=== PATIENT | female | born 1990 | race Caucasian/White ===

== ENCOUNTER → 2016-05-01 | Outpatient (CLI) | payer OTHER ==
[~2016-05-01] MED LIST: AZIT500T2 PO; FERR325T PO; INFL1INJ56 IM; TRICTAB PO
== END ==
LOC: HPND 12:57
PROVIDERS: ATTEND Family Medicine
DX: O36.80X0 Pregnancy with inconclusive fetal viability, not applicable or unspecified (principal)
CPT/HCPCS: 76801

== ENCOUNTER → 2016-06-12 | Outpatient (CLI) | payer OTHER | LOC: HPND 12:58 | PROVIDERS: ATTEND Family Medicine | DX: Z36 Encounter for antenatal screening of mother (principal) | CPT/HCPCS: 76805 ==

== ENCOUNTER → 2016-07-11 | Outpatient (CLI) | payer OTHER ==
[~2016-07-11] MED LIST changes: -AZIT500T2 PO; -INFL1INJ56 IM
== END ==
LOC: HPND 10:39
PROVIDERS: ATTEND Obstetrics & Gynecology
DX: O35.8XX0 Maternal care for other (suspected) fetal abnormality and damage, not applicable or unspecified (principal); O35.0XX0 Maternal care for (suspected) central nervous system malformation in fetus, not applicable or unspecified
CPT/HCPCS: 76811

== ENCOUNTER 2016-11-02 09:43 | Emergency (ER) | payer OTHER ==
[~2016-11-02] VITALS: Ht 162.6 cm; Wt 67.1 kg
[~2016-11-02 09:43] MED LIST changes: +FERR324T4 PO; -FERR325T PO
--- NOTE | 2016-11-02 10:04 | PD ---
HPI Chief Complaint Contractions Date Seen: Nov 02, 2016 Time Seen: 10:00 Travel History International Travel<30 Days: No Contact w/Intl Traveler<30Days: No Known Affected Area: No History of Present Illness HPI Pt is a 26 year old at 39 weeks and 3 days who p/w contractions. She first noticed them last night at 11pm. She now reports having CTX every 5 minutes. She describes having crampy low abdominal pain and low back pain, 4 out of 10 severity. She denies any LOF, VB. She reports FM. Para: 0 : 2 History Past Medical History Medical History: Denies Significant Hx Obstetric History Obstetric History Menarche: 11 Cycle: Monthly Pregnancies: , Ab1 Family History Narrative Family History Mother: thyroid issues, cardiovascular issues run in the family Father: kidney issues Social History Narrative Social History Alcohol: None since , prior to that it was on occasion. Tobacco: Denies Alcohol Use: No Tobacco Use: No Substance Abuse: No Allergies-Medications (Allergen,Severity, Reaction): Coded Allergies: No Known Allergies (Unverified , 10/30/16) Home Meds Active Scripts Ferrous Sulfate DR 324 Mg [id number] Mg PO DAILY #30 TAB Ref 6 Prov:Adrienne Cohen MD R2 10/10/16 Reported Medications Vit-Ferrous Fumarate ()1 Tab Tab1 Tab PO DAILY #30 TAB Ref 0 06/20/16 Physical Exam Blood pressure 136/90, pulse 81, respiratory rate 15, temperature 98.2, pain 4 out of 10 Narrative GENERAL: Well-nourished, well-developed patient. SKIN: Warm and dry. HEAD: Normocephalic and atraumatic. EYES: No scleral icterus. No injection or drainage. ENT: No nasal drainage noted. Mucous membranes pink. Airway patent. NECK: Supple, trachea midline. No JVD. CARDIOVASCULAR: Regular rate and rhythm without murmurs, gallops, or rubs. RESPIRATORY: Breath sounds equal bilaterally. No accessory muscle use. BREASTS: Bilateral exam showed no masses , no retractions, no nipple discharge. ABDOMEN/GI: Abdomen soft, non-tender, bowel sounds present, no rebound, no guarding Gravid to 39 weeks size GENITOURINARY: External Genitalia: intact and normal in appearance Cervix: posterior Dilatation: 1cm Effacement: 70% Station: -3 Presentation: vertex Membranes: intact Uterine Contractions: q3-4min FHT's: Category: Cat I Baseline: 120 Reactive: reactive Variability: moderate Decels: none EXTREMITIES: No cyanosis or edema. BACK: Nontender without obvious deformity. No CVA tenderness. NEUROLOGICAL: Awake and alert. Motor and sensory grossly within normal limits. Five out of 5 muscle strength in all muscle groups. Normal speech. Data Data Vital Signs Reviewed: Yes MDM Plan Pt is a 26 year old at 39 weeks and 3 days who p/w contractions every 3-4 minutes on exam. Cervical exam is 1 cm, 70% effaced. 1. Contractions Monitor vital signs Monitor heart rate Monitor tocometry Cervical exam is unchanged, so discharge home Patient seen and discussed with Dr. Petersen. Diagnosis Diagnosis: Primary Impression: False labor Additional Impressions: 39 weeks gestation of with 39 completed weeks gestation Disposition: 01 DISCHARGE HOME Condition: Good Khadar Beatty MD R1 Nov 02, 2016 10:04
== END 2016-11-02 10:54 | disposition home or self-care (01) ==
LOC: HOBED 09:43
DX: O47.1 False labor at or after 37 completed weeks of gestation (principal); Z3A.39 39 weeks gestation of pregnancy
CPT/HCPCS: 59025

== ENCOUNTER 2016-11-03 19:52 | Inpatient (IN) | payer OTHER ==
--- NOTE | 2016-11-03 20:58 | PD ---
HPI Chief Complaint Contractions Date Seen: Nov 03, 2016 Time Seen: 20:45 Travel History International Travel<30 Days: No Contact w/Intl Traveler<30Days: No Known Affected Area: No History of Present Illness HPI Patient is a 26-year-old at 39/4 weeks gestation with TY of 11/06/16 based on LMP, confirmed by ultrasound presenting due to contractions. PCP is Dr. Cohen, [facility]. Patient reports that she has had intermittent irregular contractions since Sunday. She started to have more regular contractions at about 3 PM this afternoon. Contractions are now currently less than 5 minutes apart. She endorses movement, denies congestive fluid, vaginal bleeding. Para: 0 : 2 Miscarriage: 0 : 1 History Past Medical History Medical History: Denies Significant Hx Obstetric History Obstetric History AB 1 Past Surgical History Surgical History: No Previous Surgery Family History Narrative Family History Mother: thyroid issues, cardiovascular issues run in the family Father: kidney issues Social History Alcohol Use: No Tobacco Use: No Substance Abuse: No Allergies-Medications (Allergen,Severity, Reaction): Coded Allergies: No Known Allergies (Unverified , 10/30/16) Home Meds Active Scripts Ferrous Sulfate DR 324 Mg [id number] Mg PO DAILY #30 TAB Ref 6 Prov:Adrienne Cohen MD R3 10/10/16 Reported Medications Vit-Ferrous Fumarate ()1 Tab Tab1 Tab PO DAILY #30 TAB Ref 0 06/20/16 Review of Systems General / Constitutional: No: Fever, Chills Eyes: No: Blurred Vision HENT: No: Headaches Cardiovascular: No: Palpitations Gastrointestinal: Abdominal Pain Genitourinary: No: Vaginal Bleeding Musculoskeletal: No: Edema Skin: No Rash Physical Exam Narrative GENERAL: Well-nourished, well-developed patient. SKIN: Warm and dry. HEAD: Normocephalic and atraumatic. EYES: No scleral icterus. No injection or drainage. ENT: No nasal drainage noted. Mucous membranes pink. Airway patent. NECK: Supple, trachea midline. No JVD. CARDIOVASCULAR: Regular rate and rhythm without murmurs, gallops, or rubs. RESPIRATORY: Breath sounds equal bilaterally. No accessory muscle use. ABDOMEN/GI: Abdomen soft, non-tender, bowel sounds present, no rebound, no guarding Gravid to 39 weeks size GENITOURINARY: External Genitalia: intact and normal in appearance Cervix: soft Dilatation: 3cm Effacement: 80% Station: -1 Presentation: Vertex Membranes: Intact Uterine Contractions: Q2-4 minutes FHT's: Category: 1 Baseline: 135 Reactive: + Variability: Moderate Decels: Absent EXTREMITIES: No cyanosis or edema. BACK: Nontender without obvious deformity. No CVA tenderness. NEUROLOGICAL: Awake and alert. Motor and sensory grossly within normal limits. Five out of 5 muscle strength in all muscle groups. Normal speech. Data Data Orders Vital Signs (Adult) .ON ADMISSION (11/03/16 20:47) ^ Labor Status (11/03/16 20:47) Diet Liquid (11/04/16 Breakfast) MDM Medical Record Reviewed: Yes Interpretation(s) Patient is a 26-year-old at 39/4 weeks gestation with TY of 11/06/16 based on LMP, confirmed by ultrasound presenting due to contractions. IUP Category 1 tracing, reassuring External monitoring/toco GBS negative, blood type A+ Will repeat cervical exam in 1 hour to assess for cervical change Patient has not yet decided to have an epidural On repeat exam cervix 4cm/80%/-1 Category 1 tracing Pt to be admitted, currently in active labor Anticipate spontaneous vaginal delivery Edd Silvestre MD R3 Nov 03, 2016 20:58
[2016-11-03] MEDS ORDERED: LACTATED RINGER'S 1000 ML INJ 1,000 ML IV SCH (22:40)
[2016-11-03] MEDS ORDERED: LIDOCAINE HCL 1% 50 ML VIAL I-DERMAL PRN (22:45)
[2016-11-03] MEDS ORDERED: SODIUM CHLORID 0.9% 500 ML INJ 500 ML IV PRN (22:45)
[2016-11-03] MEDS ORDERED: ONDANSETRON HCL 4 MG/2 ML VIAL IV PRN (22:45)
[2016-11-03] MEDS ORDERED: CITRIC ACID-SODIUM CITRATE LIQ 30 ML UDC PO SCH (22:45)
[2016-11-03] MEDS ORDERED: LIDOCAINE HCL 1% 50 ML VIAL INFIL PRN (22:45)
[2016-11-03] MEDS ORDERED: OXYTOCIN 30 UNITS-500ML PREMIX 500 ML IV ONE (22:45)
[2016-11-03] MEDS ORDERED: MINERAL OIL 10 ML VIAL TOPICAL PRN (22:45)
[2016-11-03 23:00] VITALS: RESP 18
[2016-11-03] MEDS ORDERED: SODIUM CHLOR 0.9% 1000 ML INJ 1,000 ML IV PRN (23:00)
[2016-11-03 23:30] VITALS: RESP 18
[2016-11-03 23:40] LABS: BASOPHIL % 0.1 % (0.0-2.0); EOSINOPHIL % 0.1 % (0.0-4.0); HEMATOCRIT 35.6 % (35.0-46.0); HEMO FLAGS DIFF FINAL; LYMPH % 15.3 % (9.0-44.0); LYMPHOCYTE # 1.8 TH/MM3 (1.0-4.8); MEAN CELL VOLUME 87.6 FL (80.0-100.0); MEAN CORPUSCULAR HEMOGLOBIN 29.8 PG (27.0-34.0); MONO % 7.3 % (0.0-8.0); NEUT % 77.2 % (16.0-70.0); PLATELET COUNT 206 TH/MM3 (150-450); RED BLOOD COUNT 4.07 MIL/MM3 (4.00-5.30); RED CELL DISTRIBUTION WIDTH 14.6 % (11.6-17.2); WHITE BLOOD COUNT 11.6 TH/MM3 (4.0-11.0)
[2016-11-03] MEDS ORDERED: fentaNYL 2MCG-BUPIV 0.125% INJ 100 ML ONE (23:42)
[2016-11-03 23:50] VITALS: PULSE 96
[2016-11-03 23:53] VITALS: BP 138/95; PULSE 107
[2016-11-03 23:55] VITALS: PULSE 87
[2016-11-03 23:59] LABS: BLOOD, URINE NEG (NEG); COMMENT (UR) CULT NOT INDICATED; CULTURE IF INDICATED CULT NOT INDICATED; GLUCOSE,URINE NEG (NEG); KETONE, URINE TRACE mg/dL (NEG); NITRITE,URINE NEG (NEG); SQUAMOUS EPITHELIAL CELL URINE 3 /hpf (0-5); URINE COLOR LIGHT-YELLOW (YELLW/STRAW)
[2016-11-04] VITALS (144 sets, daily range): BP systolic 92–138; BP diastolic 55–103; PULSE 72–126; RESP 16–20; TEMP 97.8–98.9
--- NOTE | 2016-11-04 00:19 | HHI.HP ---
History & Physical H&P Chief Complaint Contractions Date Seen: Nov 03, 2016 Time Seen: 20:45 Travel History International Travel<30 Days: No Contact w/Intl Traveler<30Days: No Known Affected Area: No History of Present Illness HPI Patient is a 26-year-old at 39/4 weeks gestation with TY of 11/06/16 based on LMP, confirmed by ultrasound presenting due to contractions. PCP is Dr. Cohen, [facility]. Patient reports that she has had intermittent irregular contractions since Sunday. She started to have more regular contractions at about 3 PM this afternoon. Contractions are now currently less than 5 minutes apart. She endorses movement, denies congestive fluid, vaginal bleeding. Para: 0 : 2 Miscarriage: 0 : 1 History Past Medical History Medical History: Denies Significant Hx Obstetric History Obstetric History AB 1 Past Surgical History Surgical History: No Previous Surgery Family History Narrative Family History Mother: thyroid issues, cardiovascular issues run in the family Father: kidney issues Social History Alcohol Use: No Tobacco Use: No Substance Abuse: No Allergies-Medications (Allergen,Severity, Reaction): Coded Allergies: No Known Allergies (Unverified , 10/30/16) Home Meds Active Scripts Ferrous Sulfate DR 324 Mg [id number] Mg PO DAILY #30 TAB Ref 6 Prov:Adrienne Cohen MD R3 10/10/16 Reported Medications Vit-Ferrous Fumarate ()1 Tab Tab1 Tab PO DAILY #30 TAB Ref 0 06/20/16 Review of Systems General / Constitutional: No: Fever, Chills Eyes: No: Blurred Vision HENT: No: Headaches Cardiovascular: No: Palpitations Gastrointestinal: Abdominal Pain Genitourinary: No: Vaginal Bleeding Musculoskeletal: No: Edema Skin: No Rash Physical Exam Narrative GENERAL: Well-nourished, well-developed patient. SKIN: Warm and dry. HEAD: Normocephalic and atraumatic. EYES: No scleral icterus. No injection or drainage. ENT: No nasal drainage noted. Mucous membranes pink. Airway patent. NECK: Supple, trachea midline. No JVD. CARDIOVASCULAR: Regular rate and rhythm without murmurs, gallops, or rubs. RESPIRATORY: Breath sounds equal bilaterally. No accessory muscle use. ABDOMEN/GI: Abdomen soft, non-tender, bowel sounds present, no rebound, no guarding Gravid to 39 weeks size GENITOURINARY: External Genitalia: intact and normal in appearance Cervix: soft Dilatation: 3cm Effacement: 80% Station: -1 Presentation: Vertex Membranes: Intact Uterine Contractions: Q2-4 minutes FHT's: Category: 1 Baseline: 135 Reactive: + Variability: Moderate Decels: Absent EXTREMITIES: No cyanosis or edema. BACK: Nontender without obvious deformity. NEUROLOGICAL: Awake and alert. Motor and sensory grossly within normal limits. Five out of 5 muscle strength in all muscle groups. Normal speech. Data Data Orders Vital Signs (Adult) .ON ADMISSION (11/03/16 20:47) ^ Labor Status (11/03/16 20:47) Diet Liquid (11/04/16 Breakfast) MDM Interpretation(s) Patient is a 26-year-old at 39/4 weeks gestation with TY of 11/06/16 based on LMP, confirmed by ultrasound presenting due to contractions. IUP Category 1 tracing, reassuring External monitoring/toco GBS negative, blood type A+ Will repeat cervical exam in 1 hour to assess for cervical change Patient has not yet decided to have an epidural On repeat exam cervix 4cm/80%/-1 Category 1 tracing Pt to be admitted, currently in active labor Anticipate spontaneous vaginal delivery Edd Silvestre MD R3 Nov 04, 2016 00:18
--- NOTE | 2016-11-04 03:20 | PD.LABORPN ---
Subjective Subjective Pt resting comfortably with epidural. No acute concerns. Family present at bedside. Objective Vital Signs Vital Signs Date Time Temp Pulse Resp B/P Pulse Ox O2 Delivery O2 Flow Rate FiO2 11/04/16 02:35 80 11/04/16 02:30 78 98/59 11/04/16 02:30 77 11/04/16 02:30 18 11/04/16 02:25 93 11/04/16 02:20 79 11/04/16 02:15 76 11/04/16 02:15 77 98/59 11/04/16 02:10 79 11/04/16 02:05 80 11/04/16 02:00 77 102/68 11/04/16 02:00 18 11/04/16 02:00 78 11/04/16 01:55 79 11/04/16 01:50 78 11/04/16 01:45 72 11/04/16 01:45 77 103/60 11/04/16 01:40 80 11/04/16 01:35 78 11/04/16 01:30 78 101/67 11/04/16 01:30 76 11/04/16 01:25 78 11/04/16 01:20 77 11/04/16 01:15 85 11/04/16 01:15 88 103/69 11/04/16 01:15 18 11/04/16 01:10 78 11/04/16 01:05 76 11/04/16 01:01 82 122/70 11/04/16 01:00 88 11/04/16 01:00 18 11/04/16 00:55 81 11/04/16 00:50 83 11/04/16 00:45 18 11/04/16 00:45 76 125/83 11/04/16 00:45 96 11/04/16 00:40 89 11/04/16 00:35 81 11/04/16 00:30 77 11/04/16 00:30 82 117/79 11/04/16 00:30 18 11/04/16 00:25 91 11/04/16 00:25 91 11/04/16 00:20 80 11/04/16 00:15 80 123/76 11/04/16 00:15 80 123/76 11/04/16 00:15 87 11/04/16 00:10 84 11/04/16 00:07 18 11/04/16 00:05 91 11/04/16 00:05 91 126/79 11/04/16 00:00 88 133/83 11/04/16 00:00 18 11/04/16 00:00 96 11/03/16 23:55 87 11/03/16 23:53 107 138/95 11/03/16 23:50 96 11/03/16 23:30 18 11/03/16 23:00 18 Objective Pelvic Exam: Cervix: Soft Dilatation: 5-6% Effacement: 90% Station: -1 Presentation: Vertex Membranes: Intact Uterine Contractions: Q3-4 minutes FHT's: Category: 1 Baseline: 120 Reactive: + Variability: Moderate Decels: Absent Assessment/Plan Assessment and Plan Patient is a 26-year-old at 39/5 weeks gestation with TY of 11/06/16 based on LMP, currently in labor. Category 1 tracing External monitoring/toco Pain well controlled with epidural Cervix dilated to 56 centimeters, 90% effaced, -1 station Consider AROM, Pitocin for labor augmentation Anticipate spontaneous vaginal delivery Edd Silvestre MD R3 Nov 04, 2016 03:20
[2016-11-04] MEDS: LACTATED RINGER'S 1000 ML INJ 1,000 ML IV PRN ×2 (05:10→09:19)
[2016-11-04] MEDS ORDERED: fentaNYL 2MCG-BUPIV 0.125% INJ 100 ML ONE (06:37)
--- NOTE | 2016-11-04 08:41 | PD.LABORPN ---
Subjective Subjective Pt resting comfortably with epidural. No acute concerns. Is able to feel contractions and movement. Objective Vital Signs Vital Signs Date Time Temp Pulse Resp B/P Pulse Ox O2 Delivery O2 Flow Rate FiO2 11/04/16 08:06 18 11/04/16 08:05 102 11/04/16 08:00 86 11/04/16 08:00 87 96/56 11/04/16 07:45 98/58 11/04/16 07:45 18 11/04/16 07:40 87 11/04/16 07:35 83 11/04/16 07:30 80 97/55 11/04/16 07:30 81 11/04/16 07:30 98.3 18 11/04/16 07:25 84 11/04/16 07:20 81 11/04/16 07:15 85 11/04/16 07:15 86 97/57 11/04/16 07:08 18 11/04/16 07:05 85 11/04/16 07:01 86 100/62 11/04/16 07:00 93 11/04/16 06:45 18 11/04/16 06:40 89 11/04/16 06:35 89 11/04/16 06:30 81 11/04/16 06:30 86 106/65 11/04/16 06:25 86 11/04/16 06:20 83 11/04/16 06:15 82 11/04/16 06:15 18 11/04/16 06:15 84 104/62 11/04/16 06:10 90 11/04/16 06:05 83 11/04/16 06:00 82 11/04/16 06:00 86 102/63 11/04/16 05:55 83 11/04/16 05:50 83 11/04/16 05:45 18 11/04/16 05:45 78 11/04/16 05:45 81 111/60 11/04/16 05:40 86 11/04/16 05:35 83 11/04/16 05:31 85 108/71 11/04/16 05:30 95 11/04/16 05:25 95 11/04/16 05:20 95 11/04/16 05:15 89 11/04/16 05:15 18 11/04/16 05:15 81 116/82 11/04/16 05:10 78 8 05:05 85 8 05:01 88 110/80 8 05:00 80 8 04:55 83 8 04:50 82 8 04:45 80 8 04:45 80 112/68 817 04:40 82 8 04:35 79 8 04:32 18 11/04/16 04:30 93 8 04:30 83 8 04:30 113/69 8 04:25 75 8 04:20 82 8 04:15 85 11/04/16 04:15 90 107/67 11/04/16 04:10 79 8 04:05 79 11/04/16 04:00 91 98/59 8 04:00 98.0 18 11/04/16 04:00 79 8 03:55 93 11/04/16 03:50 83 8 03:45 77 8 03:45 81 97/56 8 03:40 83 8 03:35 80 8 03:30 18 11/04/16 03:30 79 8 03:30 79 93/55 8 03:25 78 8 03:20 82 8 03:15 77 99/59 8 03:15 79 8 03:10 81 8 03:05 87 8 03:00 77 18 98/63 8 03:00 72 8 02:55 79 8 02:50 79 8 02:45 77 92/61 817 02:45 82 8 02:40 77 8 02:35 80 8 02:30 78 98/59 817 02:30 77 8 02:30 18 8 02:25 93 11/04/16 02:20 79 8 02:15 76 8/17 02:15 77 98/59 11/04/16 02:10 79 11/04/16 02:05 80 11/04/16 02:00 77 102/68 11/04/16 02:00 18 11/04/16 02:00 78 11/04/16 01:55 79 11/04/16 01:50 78 11/04/16 01:45 72 11/04/16 01:45 77 103/60 11/04/16 01:40 80 11/04/16 01:35 78 11/04/16 01:30 78 101/67 11/04/16 01:30 76 11/04/16 01:25 78 11/04/16 01:20 77 11/04/16 01:15 85 11/04/16 01:15 88 103/69 11/04/16 01:15 18 11/04/16 01:10 78 11/04/16 01:05 76 11/04/16 01:01 82 122/70 11/04/16 01:00 88 11/04/16 01:00 18 11/04/16 00:55 81 11/04/16 00:50 83 11/04/16 00:45 18 11/04/16 00:45 76 125/83 11/04/16 00:45 96 11/04/16 00:40 89 11/04/16 00:35 81 Objective Pelvic Exam: Cervix: midposition Dilatation: 8 Effacement: 100 Station: -1 Presentation: [-] Membranes: intact Uterine Contractions: q4-5min FHT's: Category: 1 Baseline: 125 Reactive: accels present Variability: moderate Decels: none Assessment/Plan Assessment and Plan Patient is a 26-year-old at 39/5 weeks gestation with TY of 11/06/16 based on LMP, currently in labor. Category 1 tracing External monitoring/toco Pain well controlled with epidural Cervix dilated to 8 centimeters, 100% effaced, -1 station Plan for AROM, will consider labor augmentation with Pit and IUPC Anticipate spontaneous vaginal delivery wdw Adrienne Berkowitz MD R3 Nov 04, 2016 08:41
[2016-11-04] MEDS ORDERED: OXYTOCIN 30 UNITS-500ML PREMIX 500 ML ONE (09:43)
[2016-11-04] MEDS ORDERED: OXYTOCIN 30 UNITS-500ML PREMIX 500 ML IV SCH ×2 (10:30→13:00)
[2016-11-04] MEDS ORDERED: DOCUSATE SODIUM 50 MG/SENNA 8.6 MG TAB PO PRN (13:00)
[2016-11-04] MEDS ORDERED: ALUMINUM/MAGNESIUM/SIMETH 30 ML CUP PO PRN (13:00)
[2016-11-04] MEDS ORDERED: BENZOCAINE 20% TOPICAL SPRAY 60 ML CAN TOPICAL PRN (13:00)
[2016-11-04] MEDS ORDERED: WITCH HAZEL 50%/GLYCERIN 12.5% 40 PAD JAR TOPICAL PRN (13:00)
[2016-11-04] MEDS ORDERED: ZOLPIDEM TARTRATE 5 MG TAB PO PRN (13:00)
[2016-11-04] MEDS ORDERED: OXYTOCIN 30 UNITS-500ML PREMIX 500 ML IV ONE (13:00)
[2016-11-04] MEDS ORDERED: SODIUM CHLORIDE 0.9% FLUSH 10 ML FLUSH IV FLUSH PRN (13:00)
[2016-11-04] MEDS ORDERED: ONDANSETRON ODT 4 MG TAB PO PRN (13:00)
--- NOTE | 2016-11-04 13:11 | PD.LABORPN ---
Subjective Subjective DELAYED DOCUMENTATION, PATIENT SEEN AROUND 11 Patient resting comfortable. Was taking a nap. No acute concern Objective Vital Signs Vital Signs Date Time Temp Pulse Resp B/P Pulse Ox O2 Delivery O2 Flow Rate FiO2 11/04/16 12:15 20 11/04/16 12:00 75 124/103 11/04/16 11:55 20 11/04/16 11:45 78 126/81 11/04/16 11:41 20 11/04/16 11:30 85 123/78 11/04/16 11:30 20 11/04/16 11:15 79 18 105/69 11/04/16 11:04 98.1 11/04/16 11:00 91 109/70 11/04/16 10:45 84 107/69 11/04/16 10:40 18 11/04/16 10:30 80 107/70 11/04/16 10:15 84 112/77 11/04/16 10:07 18 11/04/16 10:00 83 109/73 11/04/16 09:45 81 101/62 11/04/16 09:44 18 11/04/16 09:30 83 104/56 11/04/16 09:15 101/61 11/04/16 09:15 90 11/04/16 09:11 98.3 11/04/16 09:06 18 11/04/16 09:05 77 11/04/16 09:00 110/67 11/04/16 08:55 81 11/04/16 08:45 105/66 11/04/16 08:45 18 11/04/16 08:40 93 11/04/16 08:30 101/65 11/04/16 08:25 79 11/04/16 08:20 82 11/04/16 08:15 80 11/04/16 08:15 105/65 11/04/16 08:15 84 11/04/16 08:10 84 11/04/16 08:06 18 11/04/16 08:05 102 11/04/16 08:00 86 11/04/16 08:00 87 96/56 11/04/16 07:45 98/58 11/04/16 07:45 18 11/04/16 07:40 87 11/04/16 07:35 83 11/04/16 07:30 80 97/55 11/04/16 07:30 81 11/04/16 07:30 98.3 18 11/04/16 07:25 84 11/04/16 07:20 81 11/04/16 07:15 85 11/04/16 07:15 86 97/57 11/04/16 07:08 18 11/04/16 07:05 85 11/04/16 07:01 86 100/62 11/04/16 07:00 93 11/04/16 06:45 18 11/04/16 06:40 89 11/04/16 06:35 89 11/04/16 06:30 81 11/04/16 06:30 86 106/65 11/04/16 06:25 86 11/04/16 06:20 83 11/04/16 06:15 82 11/04/16 06:15 18 11/04/16 06:15 84 104/62 11/04/16 06:10 90 11/04/16 06:05 83 11/04/16 06:00 82 11/04/16 06:00 86 102/63 11/04/16 05:55 83 11/04/16 05:50 83 11/04/16 05:45 18 11/04/16 05:45 78 11/04/16 05:45 81 111/60 11/04/16 05:40 86 11/04/16 05:35 83 11/04/16 05:31 85 108/71 11/04/16 05:30 95 11/04/16 05:25 95 11/04/16 05:20 95 11/04/16 05:15 89 11/04/16 05:15 18 11/04/16 05:15 81 116/82 11/04/16 05:10 78 Objective Pelvic Exam: Cervix: midposition Dilatation: 9-10 Effacement: 100 Station: -1 Presentation: [-] Membranes: [AROM Uterine Contractions: q4-5 FHT's: Category: 1 Baseline: 120s Reactive: accels present Variability: moderate Decels: early Assessment/Plan Assessment and Plan Patient is a 26-year-old at 39/5 weeks gestation with TY of 11/06/16 based on LMP, currently in labor. Category 1 tracing External monitoring/toco Pain well controlled with epidural Cervix dilated to 8 centimeters, 100% effaced, -1 station AROM at 0855 clear, Pit ordered but will wait as contraction pattern is good Anticipate spontaneous vaginal delivery sdw Dr. Nicola Cohen,Adrienne Nguyen MD R3 Nov 04, 2016 13:11
--- NOTE | 2016-11-04 13:15 | PD.OB.DELI ---
Delivery Date: Nov 04, 2016 Anesthesia: Epidural Episiotomy: None Vaginal Delivery: Normal Presentation: Occiput anterior Nuchal Cord: x1 (tight, cord cut prior to delivery of body) : Female One Minute : 8 Five Minute : 8 Weight: Not yet weighed as mother is doing skin to skin Placenta: Spontaneous delivery, Intact Laceration: Vaginal laceration (periurethral on right), Perineal laceration (7o 'clock position) Repair: Chromic running (2.0 7'oclock position), Vicryl running (3.0 periurethral) Additional Information Supervised and Assisted by Dr. Petersen Delivered by Adrienne Faith MD R3 Nov 04, 2016 13:15
[2016-11-04] MEDS: ACETAMINOPHEN 325 MG TAB PO PRN ×2 (14:49→20:36)
[2016-11-04] MEDS ORDERED: DIPHTH/TETANUS/ACEL PERTUSSIS (BOOSTER) 0.5 ML VIAL/PFS IM ONE (16:00)
[2016-11-04] MEDS ORDERED: MEASLES, MUMPS, RUBELLA VACCINE 0.5 ML VIAL SQ ONE (16:00)
[2016-11-04] MEDS: IBUPROFEN 600 MG TAB PO PRN (20:36)
[2016-11-04] MEDS ORDERED: SODIUM CHLORIDE 0.9% FLUSH 10 ML FLUSH IV FLUSH SCH (21:00)
[2016-11-05] MEDS: IBUPROFEN 600 MG TAB PO PRN ×2 (03:46→16:30)
[2016-11-05] MEDS: ACETAMINOPHEN 325 MG TAB PO PRN ×2 (03:47→16:30)
--- NOTE | 2016-11-05 08:17 | HHI.OB ---
Subjective Post Day: 1 Remarks Pt seen and examined this morning. day # 1 AFVSS overnight. Decreased lochia. Denies dysuria. No breast tenderness. She is feeding the baby via breast. Appetite good. No nausea or vomiting. Patient has not yet had a bowel movement, but does endorse passing gas. Ambulating well. Denies calf pain or shortness of breath. Otherwise, she is doing well this morning and has no other concerns. Objective Vitals/I&O Vital Signs Date Time Temp Pulse Resp B/P Pulse Ox O2 Delivery O2 Flow Rate FiO2 11/04/16 20:20 97.9 11/04/16 20:20 91 16 130/82 11/04/16 15:32 98.9 95 16 113/68 11/04/16 14:23 18 11/04/16 14:15 119 18 138/83 11/04/16 14:00 109 124/81 11/04/16 13:47 20 11/04/16 13:45 96 127/74 11/04/16 13:31 126 133/97 11/04/16 13:17 20 11/04/16 13:15 126 132/95 11/04/16 13:10 98.8 11/04/16 13:10 18 11/04/16 13:00 121 124/82 11/04/16 12:15 20 11/04/16 12:00 75 124/103 11/04/16 11:55 20 11/04/16 11:45 78 126/81 11/04/16 11:41 20 11/04/16 11:30 85 123/78 11/04/16 11:30 20 11/04/16 11:15 79 18 105/69 11/04/16 11:04 98.1 11/04/16 11:00 91 109/70 11/04/16 10:45 84 107/69 11/04/16 10:40 18 11/04/16 10:30 80 107/70 11/04/16 10:15 84 112/77 11/04/16 10:07 18 11/04/16 10:00 83 109/73 11/04/16 09:45 81 101/62 11/04/16 09:44 18 11/04/16 09:30 83 104/56 11/04/16 09:15 101/61 11/04/16 09:15 90 11/04/16 09:11 98.3 11/04/16 09:06 18 11/04/16 09:05 77 11/04/16 09:00 110/67 11/04/16 08:55 81 11/04/16 08:45 105/66 11/04/16 08:45 18 11/04/16 08:40 93 11/04/16 08:30 101/65 11/04/16 08:25 79 11/04/16 08:20 82 11/04/16 08:15 80 11/04/16 08:15 105/65 11/04/16 08:15 84 Objective Remarks GENERAL: Well-nourished, well-developed patient. CARDIOVASCULAR: Regular rate and rhythm without murmurs, gallops, or rubs. RESPIRATORY: Breath sounds equal bilaterally. No accessory muscle use. ABDOMEN/GI: Abdomen soft, non-tender. Fundus: Firm, non-tender at umbilicus. GENITOURINARY: Light to moderate bleeding. EXTREMITIES: No cyanosis or edema, non-tender, without signs of DVT. Medications and IVs Current Medications Medications (Trade) Dose Ordered Sig/Herbie Route Start Time Stop Time Status Last Admin (NS Flush) 2 ml BID IV FLUSH 11/04/16 21:00 11/04/16 14:31 (NS Flush) 2 ml UNSCH PRN IV FLUSH 11/04/16 13:00 (Tylenol) 650 mg Q4H PRN PO 11/04/16 13:00 11/05/16 03:47 (Motrin) 600 mg Q6H PRN PO 11/04/16 13:00 11/05/16 03:46 (Americaine 20% Top Spr) 1 spray Q4H PRN TOPICAL 11/04/16 13:00 (Tucks Pads) 1 applic QID PRN TOPICAL 11/04/16 13:00 (Maryanne-Colace) 2 tab Q12H PRN PO 11/04/16 13:00 (Ambien) 5 mg HS PRN PO 11/04/16 13:00 (Mag-Al Plus Susp Liq) 15 ml Q8H PRN PO 11/04/16 13:00 (Zofran Odt) 4 mg Q6H PRN PO 11/04/16 13:00 Assessment/Plan Assessment and Plan 26 y/o female who is day # 1 s/p spontaneous vaginal delivery. -Continue routine care. -Percocet and Motrin PRN pain. -Encouraged OOB. Advised pelvic rest for 6 wks. -Re: ctrl, she would like to discuss her options at her follow-up [employer] appointment. -Anticipate discharge tomorrow. jazmine Petersen MD Discharge Planning Likely tomorrow Yogi Conner MD R2 Nov 05, 2016 08:17
[2016-11-05] MEDS ORDERED: DOCUSATE SODIUM 50 MG/SENNA 8.6 MG TAB PO PRN (08:30)
[2016-11-05 09:00] VITALS: BP 128/82; PULSE 67; RESP 16; TEMP 97.7
[2016-11-05 20:00] VITALS: BP 130/80; PULSE 83; RESP 18; TEMP 98.3
[2016-11-06] MEDS: IBUPROFEN 600 MG TAB PO PRN (00:07)
[2016-11-06] MEDS: ACETAMINOPHEN 325 MG TAB PO PRN (00:07)
--- NOTE | 2016-11-06 06:56 | HHI.OB ---
Subjective Post Day: 2 Remarks 26 year old female s/p at 39/5 wks gestation, PPD 2. AFVSS but BP is higher than her baseline around 100-110s systolic. No associated PARISI or vision changes. Patient reports she is feeling well. Bleeding is decreasing and pain is well-controlled. She is breast feeding and bonding well with baby. Ambulating without difficulties. She is tolerating a diet without nausea or vomiting. She has had a bowel movement. She has passed gas. Denies chest pain, dysuria, shortness of breath on exertion, or calf pain. Objective Vitals/I&O Vital Signs Date Time Temp Pulse Resp B/P Pulse Ox O2 Delivery O2 Flow Rate FiO2 11/05/16 20:00 83 130/80 11/05/16 20:00 98.3 18 11/05/16 09:00 128/82 11/05/16 09:00 97.7 67 16 Objective Remarks GENERAL: Well-nourished, well-developed patient. CARDIOVASCULAR: Regular rate and rhythm without murmurs, gallops, or rubs. RESPIRATORY: Breath sounds equal bilaterally. No accessory muscle use. ABDOMEN/GI: Abdomen soft, non-tender. Fundus: Firm, non-tender at umbilicus. GENITOURINARY: Light to moderate bleeding. EXTREMITIES: No cyanosis or edema, non-tender, without signs of DVT. Medications and IVs Current Medications Medications (Trade) Dose Ordered Sig/Herbie Route Start Time Stop Time Status Last Admin (NS Flush) 2 ml BID IV FLUSH 11/04/16 21:00 11/04/16 14:31 (NS Flush) 2 ml UNSCH PRN IV FLUSH 11/04/16 13:00 (Tylenol) 650 mg Q4H PRN PO 11/04/16 13:00 11/06/16 00:07 (Motrin) 600 mg Q6H PRN PO 11/04/16 13:00 11/06/16 00:07 (Americaine 20% Top Spr) 1 spray Q4H PRN TOPICAL 11/04/16 13:00 (Tucks Pads) 1 applic QID PRN TOPICAL 11/04/16 13:00 (Maryanne-Colace) 2 tab Q12H PRN PO 11/04/16 13:00 (Ambien) 5 mg HS PRN PO 11/04/16 13:00 (Mag-Al Plus Susp Liq) 15 ml Q8H PRN PO 11/04/16 13:00 (Zofran Odt) 4 mg Q6H PRN PO 11/04/16 13:00 (Maryanne-Colace) 2 tab Q12H PRN PO 11/05/16 08:30 Assessment/Plan Assessment and Plan 26 y/o female who is day # 2 s/p spontaneous vaginal delivery. -Continue routine care. -Motrin PRN pain. -Encouraged OOB. Advised pelvic rest for 6 wks. -Re: ctrl, options discussed in office, patient would like to use condoms. -Anticipate discharge today. -Follow up in 6 weeks, will have a BP check in 1 week wdw Adrinene Rodriguez MD R3 Nov 06, 2016 06:56
[2016-11-06] MEDS ORDERED: IBUP-232 PO (07:35)
--- NOTE | 2016-11-06 07:36 | HHI.DCPOC ---
Discharge Care Plan Diagnosis: (1) Normal vaginal delivery Report Symptoms to Your Doctor -Temperature above 100.5 degrees -Redness, of incision or excessive or foul smelling drainage -Unusual pain or calf pain -Increased vaginal bleeding -Painful or difficulty urinating -Feelings of extreme sadness or anxiety after 2 weeks Goals to Promote Your Health * To prevent worsening of your condition and complications * To maintain your health at the optimal level Directions to Meet Your Goals Take your medications as prescribed Follow your dietary instruction Follow activity as directed Ensure plenty of rest for recovery Drink fluids for hydration Keep your appointments as scheduled Take your immunizations and boosters as scheduled If your symptoms worsen call your PCP, if no PCP go to Urgent Care Center or Emergency Room Smoking is Dangerous to Your Health. Avoid second hand smoke Call the 24-hour crisis hotline for domestic abuse at Adrienne Cohen MD R3 Nov 06, 2016 07:36
[2016-11-06 07:51] VITALS: BP 127/86; PULSE 76; RESP 16; TEMP 98
== END 2016-11-06 11:27 | disposition home or self-care (01) | DRG 775 ==
LOC: HOBED 19:52 → H2EB 22:47 → H1EA 11-04 14:54
PROVIDERS: ADMIT Obstetrics & Gynecology; ATTEND Obstetrics & Gynecology
PROC: 10E0XZZ Delivery of Products of Conception, External Approach (ICD-10-PCS; principal; 2016-11-03)
PROC: 0UQGXZZ Repair Vagina, External Approach (ICD-10-PCS; 2016-11-03)
PROC: 0UQMXZZ Repair Vulva, External Approach (ICD-10-PCS; 2016-11-03)
PROC: 00HU33Z Insertion of Infusion Device into Spinal Canal, Percutaneous Approach (ICD-10-PCS; 2016-11-04)
PROC: 3E0R3CZ (ICD-10-PCS; 2016-11-04)
PROC: 10907ZC Drainage of Amniotic Fluid, Therapeutic from Products of Conception, Via Natural or Artificial Opening (ICD-10-PCS; 2016-11-04)
PROC: 0HQ9XZZ Repair Perineum Skin, External Approach (ICD-10-PCS; 2016-11-04)
DX: O71.4 Obstetric high vaginal laceration alone (principal); O69.1XX0 Labor and delivery complicated by cord around neck, with compression, not applicable or unspecified; Z3A.39 39 weeks gestation of pregnancy; O71.82 Other specified trauma to perineum and vulva; Z37.0 Single live birth; O70.9 Perineal laceration during delivery, unspecified
CPT/HCPCS: 81001; 85025; 86850; 86900; 86901; 90715; J2590; J7120